=== PATIENT | female | born 1995 | race Caucasian/White ===

== ENCOUNTER 2016-07-30 16:09 | Emergency (ER) | payer SELFPAY ==
[2016-07-30 17:39] LABS: BASOPHIL % 0.3 % (0-2); PLATELET COUNT 205 x10^3mcL (130-400); RED CELL DISTRIBUTION WIDTH 13.8 % (11.5-14.5)
[2016-07-30 17:41] LABS: microscopic required? YES; urine erythrocyte 1+ (NEGATIVE)
[2016-07-30 21:32] VITALS: BP 152/68
== END 2016-07-30 21:59 | disposition home or self-care (01) ==
LOC: ED 16:09
DX: O20.0 Threatened abortion (principal); Z3A.12 12 weeks gestation of pregnancy
CPT/HCPCS: 36415